=== PATIENT | male | born 1950 ===

== ENCOUNTER 2017-08-28 18:44 | Emergency (ER) | payer SELFPAY ==
[2017-08-28 18:57] VITALS: BP 164/98; PULSE 69; TEMP 99.3; O2SAT 96
--- NOTE | 2017-08-28 19:28 | C.PDOC ---
History Of Present Illness 66-year-old male presents to the ED for evaluation of right wrist injury, sustained 1 week ago. Patient reports that a box fell onto his right wrist. He is now complaining of pain and swelling to the area since. Patient is able to move the wrist and all digits, with pain. No changes in sensation. Time Seen by Provider: 08/28/17 18:59 Chief Complaint (Nursing): Upper Extremity Problem/Injury History Per: Patient History/Exam Limitations: no limitations Onset/Duration Of Symptoms: Days (x7) Current Symptoms Are (Timing): Still Present Past Medical History Reviewed: Historical Data, Nursing Documentation, Vital Signs Vital Signs: Last Vital Signs Temp 99.3 F 08/28/17 18:53 Pulse 69 08/28/17 18:53 Resp 18 08/28/17 18:53 BP 164/98 H 08/28/17 18:53 Pulse Ox 96 08/28/17 19:38 - Medical History PMH: HTN, Hypercholesterolemia Other Surgeries: Prostate surgery Family History: States: No Known Family Hx - Social History Hx Alcohol Use: No Hx Substance Use: No Review Of Systems Except As Marked, All Systems Reviewed And Found Negative. Musculoskeletal: Positive for: Hand Pain (right wrist) Skin: Negative for: Lesions, Bruising Neurological: Negative for: Weakness, Numbness Physical Exam - Physical Exam Appears: Non-toxic, No Acute Distress Skin: Warm, Dry, No Rash Head: Atraumatic, Normacephalic Eye(s): bilateral: Normal Inspection Neck: Normal ROM Chest: Symmetrical Extremity: Normal ROM, Tenderness (to radial aspect of right wrist), Capillary Refill (less than 2 sec to right wrist), Swelling (to radial aspect of right wrist) Pulses: Left Radial: Normal, Right Radial: Normal Neurological/Psych: Oriented x3, Normal Speech, Normal Motor, Normal Sensation, Other (No focal deficits) ED Course And Treatment O2 Sat by Pulse Oximetry: 96 (RA) Pulse Ox Interpretation: Normal - Other Rad X-Ray Right Wrist X-Ray: Interpreted by Me, Viewed By Me Interpretation: Negative fracture, negative dislocation Medical Decision Making Medical Decision Making: Impression: Right wrist pain and swelling Plan: * X-Ray Right Wrist * Motrin 600 mg PO * Ice applied to wrist Progress, Reassess and Dispo: Counseled patient regarding negative x-ray results. Velcro volar splint applied to right wrist. On re-examination, patient is resting comfortably in no acute distress. Patient reports improvement of symptoms. Patient feels comfortable going home and will be discharged. Patient given follow up instructions and prescription for Motrin. Instructed to return to ER if symptoms worsen or new symptoms arise. Disposition Counseled Patient/Family Regarding: Diagnosis, Need For Followup, Rx Given - Disposition Referrals: Bailey Rodriguez MD [Staff Provider] - Disposition: HOME/ ROUTINE Disposition Time: 19:28 Condition: STABLE Additional Instructions: Tu radiografa fue normal, sin fractura. Por favor aplique hielo en el ksenia 15 minutos sergei veces al da. [place] Motrin cuando sea necesario para el dolor cada 6 horas, con alimentos para no alterar el estmago. Samira un seguimiento con ortopedia si el dolor persiste nora denisse semana. 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 - Scribe Statement The provider has reviewed the documentation as recorded by the Scribe (Diane Roberson) All medical record entries made by the Scribe were at my direction and personally dictated by me. I have reviewed the chart and agree that the record accurately reflects my personal performance of the history, physical exam, medical decision making, and the department course for this patient. I have also personally directed, reviewed, and agree with the discharge instructions and disposition.
[2017-08-28 19:55] VITALS: RESP 20
--- NOTE | 2017-08-29 11:32 | RAD ---
Date of service: 08/28/2017 PROCEDURE: Right Wrist Radiographs. HISTORY: pain s.p injury COMPARISON: None. FINDINGS: BONES: No fracture. Subchondral arthro pathic cystic change -proximal carpal row most affected JOINTS: Arthrosis radiocarpal and intercarpal joints. No dislocation. SOFT TISSUES: Normal. OTHER FINDINGS: None. IMPRESSION: Arthrosis. No fracture
== END 2017-08-28 19:54 | disposition home or self-care (01) ==
LOC: C.ER 18:44
DX: S60.211A Contusion of right wrist, initial encounter (principal); W22.8XXA Striking against or struck by other objects, initial encounter

== ENCOUNTER 2017-11-12 12:39 | Emergency (ER) | payer SELFPAY ==
[2017-11-12 12:54] VITALS: BP 134/77; PULSE 86; RESP 18; TEMP 99.5; O2SAT 97
--- NOTE | 2017-11-12 14:28 | C.PDOC ---
History Of Present Illness Patient presents to ED asking for refill of his eyedrops. He does not remember the name of drops. He states he cannot recall the name of medication, its for his glaucoma. Patient is currently visiting from [place] and leaving in 2 weeks. Denies any eye injury, pain, vision change. Time Seen by Provider: 11/12/17 12:55 Chief Complaint (Nursing): Eye Problem History Per: Patient History/Exam Limitations: no limitations Past Medical History Reviewed: Historical Data, Nursing Documentation, Vital Signs Vital Signs: Last Vital Signs Temp 99.5 F 11/12/17 12:51 Pulse 86 11/12/17 12:51 Resp 18 11/12/17 12:51 BP 134/77 11/12/17 12:51 Pulse Ox 97 11/12/17 12:51 - Medical History PMH: HTN, Hypercholesterolemia Family History: States: Unknown Family Hx - Social History Hx Alcohol Use: No Hx Substance Use: No Review Of Systems Eyes: Negative for: Pain, Vision Change, Conjunctivae Inflammation, Eyelid Inflammation, Redness Physical Exam - Physical Exam Appears: Non-toxic, No Acute Distress Head: Normacephalic Eye(s): bilateral: Normal Inspection, EOMI ED Course And Treatment O2 Sat by Pulse Oximetry: 97 Medical Decision Making Medical Decision Making: Upon stating cannot refill medication if he does not provide the name and dose of drops. The patient eloped from ED Disposition - Disposition Disposition: ELOPEMENT - ER ONLY Disposition Time: 13:20 Condition: STABLE Forms: [facility] (Macedonian) - POA Present On Arrival: None - Clinical Impression Clinical Impression: Eloped from emergency department
== END 2017-11-12 13:35 | disposition left against medical advice (07) ==
LOC: C.ER 12:39
DX: Z76.0 Encounter for issue of repeat prescription (principal); E78.00 Pure hypercholesterolemia, unspecified; I10 Essential (primary) hypertension